=== PATIENT | male | born 1950 | race Caucasian/White ===

== ENCOUNTER → 2024-11-18 10:07 | Outpatient (REF) | payer MEDICARE, SELFPAY | LOC: HWRAD 10:07 | PROVIDERS: ATTENDING PHYSICIAN Otolaryngology; FAMILY PHYSICIAN Family Medicine | DX: J33.8 Other polyp of sinus (principal) | CPT/HCPCS: 70486 ==

== ENCOUNTER 2025-01-06 06:19 | Day surgery (SDC) | payer MEDICARE, SELFPAY ==
[2025-01-06] VITALS (9 sets, daily range): BP systolic 123–140; BP diastolic 68–82; BMI 34.7
[2025-01-06] MEDS: NORMOSOL-R/PLASMALYTE-A 1000 IV (08:29)
[2025-01-06] MEDS: SUBLIMAZE 25 MCG IV (11:28)
[2025-01-06] MEDS: MOTRIN 600 MG PO (12:04)
== END 2025-01-06 13:07 | disposition home or self-care (01) ==
LOC: SDS 06:19
PROVIDERS: ATTENDING PHYSICIAN Otolaryngology
DX: J34.2 Deviated nasal septum (principal); J34.3 Hypertrophy of nasal turbinates; J33.9 Nasal polyp, unspecified
CPT/HCPCS: 31267; 30520; 88304; 88311